=== PATIENT | female | born 1980 | race Caucasian/White ===

== ENCOUNTER → 2017-07-12 | Outpatient (CLI) | payer BC ==
[2014-02-13 18:55] VITALS: BP 102/73
[~2017-07-12] MED LIST: PRENATAL1 TA3 PO
== END ==
LOC: LAB 14:49
DX: Z12.4 Encounter for screening for malignant neoplasm of cervix (principal); R42 Dizziness and giddiness

== ENCOUNTER → 2018-12-12 | Outpatient (CLI) | payer BC ==
[2014-02-13 18:55] VITALS: BP 102/73
[2018-12-12 14:32] LABS: EOS # 0.1 (0.04-0.40); EOS % 1.8 % (1.0-5.0); HEMATOCRIT 41.7 % (37.0-47.0); HEMOGLOBIN 13.3 g/dL (12.5-16.0); LYMPH# 2.1 (1.50-4.00); MEAN CELL VOLUME 88 fl (78-100); MEAN CORPUSCULAR HEMOGLOBIN 28 pg (27-31); MEAN CORPUSCULAR HGB CONC 32 g/dL (33-37); MEAN PLATELET VOLUME 9.2 fl (7.4-10.4); MONO # 0.5 (0.20-0.80); NEU # 4.5 (1.40-6.50); PLATELET COUNT 302 K/mm3 (130-400); RED BLOOD COUNT 4.72 M/mm3 (4.10-5.30); RED CELL DISTRIBUTION WIDTH 13.1 % (11.5-14.5); WHITE BLOOD COUNT 7.3 K/mm3 (4.8-10.8)
[2018-12-12 14:48] LABS: ALBUMIN 4.7 g/dL (3.5-5.0); CALCIUM 9.5 mg/dL (8.4-10.2); POTASSIUM 4.7 mmol/L (3.6-5.0); TOTAL BILIRUBIN 0.4 mg/dL (0.2-1.3); TOTAL PROTEIN 7.7 g/dL (6.3-8.2)
== END ==
LOC: LAB 14:03
PROVIDERS: Family Medicine
DX: Z00.00 Encounter for general adult medical examination without abnormal findings (principal); R53.83 Other fatigue

== ENCOUNTER → 2021-10-29 | Outpatient (CLI) | payer MEDICAID | LOC: LAB 12:03 | DX: S91.332A Puncture wound without foreign body, left foot, initial encounter (principal) ==

== ENCOUNTER → 2021-12-25 | Outpatient (CLI) | payer MEDICAID ==
[2021-12-25 10:24] LABS: BASO # 0.02 K/mm3 (0.02-0.10); EOS % 1.6 % (1.0-5.0); HEMOGLOBIN 13.6 g/dL (12.5-16.0); LYMPH# 1.39 K/mm3 (1.50-4.00); MEAN CELL VOLUME 91 fl (78-100); MEAN CORPUSCULAR HEMOGLOBIN 29 pg (27-31); MEAN CORPUSCULAR HGB CONC 32 g/dL (33-37); MEAN PLATELET VOLUME 9.2 fl (7.4-10.4); MONO # 0.37 K/mm3 (0.20-0.80); NEU # 4.21 K/mm3 (1.40-6.50); PLATELET COUNT 228 K/mm3 (130-400); RED BLOOD COUNT 4.63 M/mm3 (4.10-5.30); RED CELL DISTRIBUTION WIDTH 12.9 % (11.5-14.5); WHITE BLOOD COUNT 6.1 K/mm3 (4.8-10.8)
[2021-12-25 10:52] LABS: POTASSIUM 4.9 mmol/L (3.5-5.1)
[2021-12-25 10:53] LABS: ALBUMIN 4.4 g/dL (3.5-5.0)
[2021-12-25 10:54] LABS: CALCIUM 9.7 mg/dL (8.3-10.5)
[2021-12-25 10:55] LABS: TOTAL PROTEIN 6.6 g/dL (6.4-8.3)
[2021-12-25 10:57] LABS: TOTAL BILIRUBIN 0.7 mg/dL (0.2-1.2)
== END ==
LOC: LAB 10:08
PROVIDERS: Family Medicine
DX: Z00.00 Encounter for general adult medical examination without abnormal findings (principal); E78.5 Hyperlipidemia, unspecified; R42 Dizziness and giddiness; N92.1 Excessive and frequent menstruation with irregular cycle